=== PATIENT | female | born 1980 ===

== ENCOUNTER 2017-05-31 10:11 | Inpatient (IN) | payer OTHER ==
[~2017-05-31] VITALS: Ht 167.6 cm; Wt 76.7 kg
[~2017-05-31 10:11] MED LIST: ACIDOPHILUS1 EAC2 PO; PEPCID20 MG PO
[2017-05-31] MEDS ORDERED: PRENATAL TABLE1 EAC1 PO (11:22)
[2017-05-31] MEDS ORDERED: [UNRECOGNIZED DRUG - OTHER] PO (11:24)
== END 2017-06-14 15:05 | disposition home or self-care (01) | DRG 782 ==
LOC: LDR 10:11 → OB/GYN 06-08 18:30
PROC: BY4FZZZ Ultrasonography of Third Trimester, Single Fetus (ICD-10-PCS; principal; 2017-05-31)
PROC: 4A1HXCZ Monitoring of Products of Conception, Cardiac Rate, External Approach (ICD-10-PCS; 2017-05-31)
PROC: BY4FZZZ Ultrasonography of Third Trimester, Single Fetus (ICD-10-PCS; 2017-06-13)
DX: O44.03 Complete placenta previa NOS or without hemorrhage, third trimester (principal); Z3A.33 33 weeks gestation of pregnancy

== ENCOUNTER 2017-06-15 13:24 | Inpatient (IN) | payer OTHER ==
[~2017-06-15] VITALS: Ht 167.6 cm; Wt 2.3 kg
[~2017-06-15 13:24] MED LIST changes: +PRENATAL TABLE1 EAC1 PO; +[UNRECOGNIZED DRUG - OTHER] PO
== END 2017-07-05 19:22 | DRG 766 ==
LOC: LDR 13:24 → O/R 07-01 19:30 → SURG-SUITE 07-01 20:51
PROVIDERS: Obstetrics & Gynecology Obstetrics
PROC: BY4FZZZ Ultrasonography of Third Trimester, Single Fetus (ICD-10-PCS; 2017-06-15)
PROC: 4A1HXCZ Monitoring of Products of Conception, Cardiac Rate, External Approach (ICD-10-PCS; 2017-06-15)
PROC: 10D00Z1 Extraction of Products of Conception, Low, Open Approach (ICD-10-PCS; principal; 2017-07-01 18:00)
DX: O44.03 Complete placenta previa NOS or without hemorrhage, third trimester (principal); Z3A.32 32 weeks gestation of pregnancy; Z37.0 Single live birth